=== PATIENT | male | born 1975 | race Caucasian/White ===

== ENCOUNTER 2017-06-14 16:00 | Emergency (ER) | payer MEDICAID ==
--- NOTE | 2017-06-14 16:08 | ED Physician Chart ---
ED Chief Complaint/HPI - Patient Information Date Seen:: 06/14/17 Time Seen:: 16:08 Chief Complaint:: RIGHT EAR ACHE FOR 10 DAYS History of Present Illness:: 41-year-old male complains of an earache in his right ear that is a 8/10 in severity. It started about 10 days to 2 weeks ago and the patient received a course of amoxicillin. The patient was in rehabilitation for methamphetamine abuse when he was given the prescription. He says he is to return to rehabilitation tomorrow and for that reason I'm going to withhold narcotic pain medicines. He states that the pain is worse and is here when it's windy outside and he had some relief from the first course of antibiotics. Patient has had no prior episodes severe pain or ear infections. He states that he is otherwise healthy. ED Review of Systems - Review of Systems General/Constitutional: No fever, No chills, No weight loss, No weakness, No loss of appetite Skin: No skin lesions, No rash, No bruising Head: No headache, No light-headedness Eyes: No loss of vision, No diplopia ENT: Earache (RT EAR), No nasal drainage, No sore throat, Tinnitus Neck: No neck pain, No swelling, No stiffness, No mass noted Cardio Vascular: No chest pain, No orthopnea, No edema Pulmonary: No SOB, Cough, No sputum, No wheezing GI: No nausea, No vomiting, No diarrhea, No pain, No hematemesis G/U: No dysuria, No frequency, No hematuria Musculoskeletal: No bone or joint pain, No back pain Psychiatric: Prior psych history, No depression, No suicidal ideation, No auditory hallucination Hematopoietic: No bruising, No lymphadenopathy Allergic/Immuno: No urticaria, No angioedema Neurological: No syncope, No focal symptoms, No weakness, No paresthesia, No headache, No dizziness, No confusion, No vertigo ED Past Medical History - Past Medical History Past Medical History: No significant medical hx Social History: Smoker (about 5 cigarettes per day.), Alcohol (occasional use), Illicit Drug Use (methamphetamine.), Single Surgical History: None Psychiatricy History: Other (history of substance abuse) ED Physical Exam - Physical Examination General/Constitutional: Awake, Well-developed, well-nourished, Alert, No distress, Non-toxic appearing, Ambulatory Head: Atraumatic Eyes: Lids, conjuctiva normal, PERRL, EOMI Other Eyes comments:: No nystagmus Skin: Nl inspection, No rash, No skin lesions, No ecchymosis, Well hydrated, No lymphadenopathy ENMT: External ears, nose nl, Nasal exam nl, Lips, teeth, gums nl, Oropharynx nl , Tonsils nl Other ENMT comments:: The right TM was partially obscured by cerumen in the auditory canal. What I was able to see was that the eardrum was dull and pink in color compared to the left TM. No discharge from the right ear or the left ear. No adenopathy in the neck on either side. Neck: Nontender, Full ROM w/o pain, No JVD, No nuchal rigidity, No mass, No stridor Respiratory: Nl effort/Exclusion, No Wheeze/Rhonchi/Rales Cardio Vascular: RRR, No murmur, gallop, rubs, NL S1 S2 Other Cardio Vascular comments:: Adequate pulses all 4 extremities. GI: No tenderness/rebounding/guarding, No organomegaly, No hernia, Normal BS's, Nondistended, No mass/bruits, No McBurney tenderness Other GI comments:: Rectal exam deferred at my discretion. : No CVA tenderness Extremities: No tenderness or effusion, Full ROM, normal strength in all extremities, No edema Neuro/Psych: Alert/oriented, Normal sensory exam, Normal motor strength, Mood normal, Normal gait, No focal deficits Misc: Normal back, No paraspinal tenderness Other Misc comments:: No vertebral tenderness to palpation. ED Labs/Radiology/EKG Results - Lab Results Results: No radiographic or laboratory studies were indicated. ED Assessment - Assessment General Assessment: CASE SUMMARY: This 41-year-old male has had a earache on and off in the right ear for the past 2 weeks to 10 days. Early in the course he had seen a physician and received a 10 day course of amoxicillin which provided some relief but the symptoms recurred after he stopped taking them. He denies any fever chills or diaphoresis. Denies any prior medical problems although he does have a history of abuse for methamphetamines. The patient received a shot of 60 mg Toradol IM while in the emergency department for treatment of pain. He was discharged with a prescription for cephalexin 500 mg to be taken 4 times a day for a 10 day course. I further gave him a prescription for ibuprofen 800 mg to be taken every 8H as needed for pain or discomfort. Discharged in stable condition with his girlfriend. MDM DDX RT EAR ACHE: NOT otitis externa based on physical examination. NOT peritonsillar abscess based on physical exam. NOT traumatic barotrauma based on the patient's history of no air travel or diving under water. NOT foreign bodies in the right ear based on physical examination. ED Septic Shock - . Is Septic Shock (SBP<90, OR Lactate>4 mmol\L) present?: No ED Reassessment (Disposition) - Reassessment Reassessment Condition:: Improved - Diagnosis Diagnosis:: OTITIS MEDIA, RT EAR. HISTORY OF METHAMPHETAMINE USE ED Discharge Plan - Patient Disposition Instructions: Otitis Media, Adult, [id number]
== END 2017-06-14 16:35 | disposition home or self-care (01) ==
LOC: ER 16:00
DX: H66.91 Otitis media, unspecified, right ear (principal); F15.20 Other stimulant dependence, uncomplicated; F17.210 Nicotine dependence, cigarettes, uncomplicated
CPT/HCPCS: 99283; 96372; J1885; Z7502